=== PATIENT | female | born 1970 | race Caucasian/White ===

== ENCOUNTER 2017-08-13 00:03 | Emergency (ER) | payer OTHER ==
[~2017-08-13] VITALS: Ht 175.3 cm; Wt 87.4 kg
[~2017-08-13 00:03] MED LIST: MOTRIN800 MG PO; TYLENOL ARTHRI650 MG PO
[2017-08-13] MEDS ORDERED: NORCO 5/3251 TABLET PO (02:11)
[2017-08-13] MEDS ORDERED: MOTRIN600 MG PO (02:11)
[2017-08-13] MEDS ORDERED: CLEOCIN300 MG PO (02:11)
[2017-08-13 02:40] VITALS: BP 119/76
[2017-08-14] MEDS ORDERED: MEDROL DOSEPAK4 MG PO (06:55)
== END 2017-08-13 02:40 | disposition home or self-care (01) ==
LOC: EME 00:03
DX: K04.7 Periapical abscess without sinus (principal); K21.9 Gastro-esophageal reflux disease without esophagitis; G25.81 Restless legs syndrome
CPT/HCPCS: 99281; 99284; J1885; J2405; J7030

== ENCOUNTER 2017-08-14 05:38 | Emergency (ER) | payer OTHER ==
[~2017-08-14] VITALS: Ht 175.3 cm; Wt 87.8 kg
[~2017-08-14 05:38] MED LIST changes: +CLEOCIN300 MG PO; +MOTRIN600 MG PO; +NORCO 5/3251 TABLET PO
[2017-08-14] MEDS ORDERED: MEDROL DOSEPAK4 MG PO (06:55)
[2017-08-14 07:07] VITALS: BP 114/84
== END 2017-08-14 07:10 | disposition home or self-care (01) ==
LOC: EME 05:38
DX: K04.7 Periapical abscess without sinus (principal); J45.909 Unspecified asthma, uncomplicated
CPT/HCPCS: 99281; 99283

== ENCOUNTER 2018-01-17 01:07 | Emergency (ER) | payer OTHER ==
[~2018-01-17] VITALS: Ht 175.3 cm; Wt 92.9 kg
[~2018-01-17 01:07] MED LIST changes: +MEDROL DOSEPAK4 MG PO
[2018-01-17] MEDS ORDERED: NORCO 5/3251 TABLET PO (02:15)
[2018-01-17] MEDS ORDERED: PEN-VEE K,VEET500 MG PO (02:15)
[2018-01-17 02:34] VITALS: BP 151/102
== END 2018-01-17 02:34 | disposition home or self-care (01) ==
LOC: EME 01:07
DX: K08.89 Other specified disorders of teeth and supporting structures (principal)
CPT/HCPCS: 99281; 99284